=== PATIENT | female | born 1985 | race Caucasian/White ===

== ENCOUNTER 2019-08-31 19:46 | Inpatient (IN) | payer MEDICAID, SELFPAY ==
[~2019-08-31 19:46] MED LIST: Iopamidol-370 76% 500 ML 1 ML ONE
[2019-08-31 21:08] LABS: Lactic Acid 2.1 mmol/L (0.5-2.2)
[2019-08-31] MEDS ORDERED: Ondansetron PF 4 MG/2 ML Vial ONE (21:49)
[2019-08-31] MEDS ORDERED: Morphine 4 MG/ML VIAL ONE (21:49)
[2019-08-31] MEDS ORDERED: Ampicillin/Sulbactam 3 GM in Sodium Chloride 0.9% 100 ML IVPB SCH (23:45)
[2019-09-01] MEDS ORDERED: Ondansetron PF 4 MG/2 ML Vial IVP PRN (00:38)
[2019-09-01] MEDS ORDERED: Ondansetron ODT 4 MG TAB SL PRN (00:38)
[2019-09-01] MEDS: Sodium Chloride 0.9% 1,000 ML IV SCH ×3 (01:00→18:17)
--- NOTE | 2019-09-01 01:52 | PDOC.HHP ---
Hospitalist HPI - History of Present Illness Abdominal pain, sore throat History of Present Illness: Patient is a 34 year old female with PMH HTN who presents to ED from [facility] with CC of flu like symptoms, abdominal pain, sore throat x 1 day. Patient reports symptoms started today and worsened rapidly, she complains most about an abdominal pain with radiation to the flank as well as sore throat. She was sent to ED by physician for concern of sepsis and was transferred here from [place]. She has had a kidney stone but this pain in abd is different. No nausea , vomiting or diarrhea, no bleeding per mouth or anus. She smokes 1/2 ppd. She denies shortness of breath or difficulty managing secretions. No respiratory distress. She has severe PCN allergy with "swelling." In Ed, patient recieved vancpomycin, flagyl, cefepime, steroids. WBC 24. VS tachycardic. CT neck performed and read pending. Hospitalist ROS - Review of Systems Constitutional: reports: fever, chills, sweats Eyes: denies: pain, vision change, conjunctivae inflammation, eyelid inflammation, redness, other ENT: reports: ear pain, mouth pain, mouth swelling, throat pain, throat swelling Respiratory: reports: cough. denies: shortness of breath, pleuritic pain Cardiovascular: denies: chest pain, palpitations Gastrointestinal: reports: abdominal pain (radiates to flank). denies: nausea, vomiting Genitourinary: denies: dysuria, frequency Musculoskeletal: reports: neck pain Neurological: denies: weakness, numbness All other systems reviewed; all pertinent +/- noted in HPI/Subj Hospitalist History - Past Medical History Cardiac: reports: HTN - Past Surgical History Past Surgical History: reports: Cholecystectomy, - Family History Family History: reports: cancer, cardiac disorder - Social History Smoking Status: Current every day smoker Alcohol: reports: None Drugs: reports: none - Exam General Appearance: NAD, awake alert Eye: PERRL, anicteric sclera ENT: normocephalic atraumatic ENT - other findings: erythema and swelling of tonsils and posterior throat Neck: supple, symmetric, no JVD, no thyromegaly, no lymphadenopathy, no carotid bruit Heart: no murmur, no gallops, no rubs, normal peripheral pulses Heart - other findings: tachycardic, regular Respiratory: CTAB, no wheezes, no rales, no ronchi, normal chest expansion, no tachypnea, normal percussion Gastrointestinal: soft, non-tender, non-distended, normal bowel sounds, no palpable masses, no hepatomegaly, no splenomegaly, no bruit Extremities: no cyanosis, no clubbing, no edema Skin: normal turgor, no lesions, no rashes Neurological: cranial nerve grossly intact, normal sensation to touch, no weakness, no focal deficits, no new deficit Musculoskeletal: normal tone, normal strength, no muscle wasting Psychiatric: normal affect, normal behavior, A&O x 3 Hospitalist Results - Labs Lab results: Lactic Acid 2.1 mmol/L (0.5-2.2) 08/31/19 20:39 Additional comment: outside labs reviewed Hospitalist H&P A/P - Plan Plan: Patient is a 34 year old female with PMH HTN who presents to ED from [facility] with CC of flu like symptoms, abdominal pain, sore throat x 1 day. # sore throat, tonsillar/pharyngeal edema - concerning for strep throat vs pharyngeal abscess, managing secretions, no SOB or distress - start clindamycin/levaquin (PCN allergy) - pain medication PRN - consult ENT - NPO - follow up culture results (strep screen/throat culture) and final CT neck read # abdominal pain - less concerning than throat, CT abdomen at outside hospita # HTN - PRN meds ordered # GI, DVT ppx to start kevon in case surgery today, follow up final CT neck/ENT
[2019-09-01] MEDS ORDERED: hydrALAZINE 20 MG/ML VIAL SLOW IVP PRN (02:40)
[2019-09-01] MEDS ORDERED: Morphine 2 MG/ML SYRINGE SLOW IVP PRN (02:40)
[2019-09-01] MEDS ORDERED: cloNIDine 0.1 MG TAB PO PRN (02:40)
[2019-09-01] MEDS ORDERED: Bisacodyl 5 MG TAB PO PRN (02:41)
[2019-09-01] MEDS ORDERED: Acetaminophen 325 MG TAB PO PRN (02:41)
[2019-09-01] MEDS ORDERED: Acetaminophen 650 MG Suppository PR PRN (03:59)
[2019-09-01] MEDS ORDERED: Acetaminophen 650 MG/20.3 ML UDCUP PO PRN (04:02)
[2019-09-01] MEDS: Morphine 4 MG/ML VIAL SLOW IVP PRN ×4 (04:07→20:05)
[2019-09-01] MEDS: Ondansetron PF 4 MG/2 ML Vial IVP PRN ×3 (04:19→19:10)
[2019-09-01] MEDS: Clindamycin/D5W 600 MG in Premix Bag 1 BAG IVPB SCH ×3 (05:39→19:56)
[2019-09-01 06:04] LABS: Anion Gap 13 mmol/L (10-20); BUN (Urea Nitrogen) 6 mg/dL (7.0-18.7); Calc. Creatinine Clearance 202 mL/min (70-130); Calcium 7.9 mg/dL (7.8-10.44); Carbon Dioxide 24 mmol/L (22-29); Chloride 103 mmol/L (98-107); Estimated GFR-MDRD Greater than 90; Glucose 137 mg/dL (70-105); Potassium 3.5 mmol/L (3.5-5.1); Sodium 136 mmol/L (136-145)
[2019-09-01 06:08] LABS: Band 1 % (5-11); Eosinophils 1 % (0-10); Hemoglobin 12.7 g/dL (12.0-16.0); Lymphocytes 9 % (21-51); MDiff Complete? YES; Mean Corpuscular HGB CONC 31.8 g/dL (32.0-36.0); Mean Corpuscular Hemoglobin 26.8 pg (27.0-31.0); Mean Corpuscular Volume 84.2 fL (78.0-98.0); Mean Platelet Volume 7.5 fL (7.4-10.4); Monocytes 5 % (0-10); Neutrophil 83 % (42-75); Platelet Count 254 thou/uL (130-400); Platelet Morphology Comment Appears Adequate; RBC Distribution Width 13.3 % (11.5-14.5); Red Blood Cell (RBC) Count 4.73 mill/uL (4.20-5.40); White Blood Cell (WBC) Count 22.1 thou/uL (4.8-10.8)
[2019-09-01] MEDS: Vancomycin 1.5 GRAM/300 ML BAG 1.5 GM in Premix Bag 1 BAG IVPB SCH ×3 (06:28→22:17)
[2019-09-01] MEDS: Nicotine 14 MG PATCH TD SCH (06:38)
--- NOTE | 2019-09-01 08:55 | CT ---
PRELIMINARY REPORT/[facility]/EMERGENCY AFTER HOURS PROCEDURE: EXAM: CT Neck with Intravenous Contrast. CLINICAL HISTORY: ER 13.. Sore throat, neck pain. Concern of possible abscess TECHNIQUE: Axial computed tomography images of the neck with intravenous contrast. Sagittal and coron al reformations performed. CONTRAST: With; ISOVUE 370, 90ML COMPARISON: None provided. FINDINGS: PHARYNX: Tonsillar hypertrophy with midline contacts. The nasopharynx, oropharyx, and hypopharynx ar e otherwise unremarkable. No pharyngeal mucosal based mass lesions. LARYNX: The larynx is unremarkable. Normal epiglottis. RETROPHARYNGEAL SPACE: No retropharyngeal soft tissue swelling or gas. SALIVARY GLANDS: The parotid, submandibular, and sublingual glands are unremarkable. LYMPH NODES: Diffuse prominent cervical lymph nodes measuring up to 13 mm in short axis. THYROID: The thyroid gland is unremarkable. No nodule. BONES: No acute osseous abnormality. IMPRESSION: 1. No evidence of abscess. 2. Bilateral tonsillar hypertrophy. Correlate for tonsillitis. 3. Prominent cervical lymph nodes which are not pathologic by size criteria though abnormal in numbe r and likely reactive. Clinical follow-up is recommended to exclude the possibility of malignancy. ELECTRONICALLY SIGNED BY: Noé Jon M.D. Sep 01, 2019 12:36:27 AM CARDIAC NURSE SPECIALIST This report is intended for review by the ordering physician only, in accordance of law. If you recei ve this report in error, please call [facility] at [phone]. FINAL REPORT EMERGENCY AFTER HOURS CT NECK WITH CONTRAST: FINDINGS/IMPRESSION: I agree with the findings and impression given in the preliminary report per [facility] physici an. There is tonsillar hypertrophy without evidence of peritonsillar abscess. Prominent reactive bila teral cervical lymph nodes are seen.
[2019-09-01] MEDS: Polyethylene Glycol 3350 17 GM Packet PO SCH (09:12)
[2019-09-01] MEDS ORDERED: Aspirin/APAP/Caffeine Tab (Excedrin Migraine) PO PRN (09:31)
[2019-09-01] MEDS: HYDROcodone/Acetaminophen 5/325 mg Tablet PO PRN ×3 (14:39→23:01)
[2019-09-01 21:23] LABS: Vancomycin, Trough 13.4 ug/mL
[2019-09-02] MEDS: Ondansetron PF 4 MG/2 ML Vial IVP PRN ×3 (03:01→18:57)
[2019-09-02] MEDS: Morphine 4 MG/ML VIAL SLOW IVP PRN ×4 (03:34→18:57)
[2019-09-02] MEDS: Clindamycin/D5W 600 MG in Premix Bag 1 BAG IVPB SCH ×2 (04:42→12:36)
[2019-09-02] MEDS: Nicotine 14 MG PATCH TD SCH (06:05)
[2019-09-02] MEDS: HYDROcodone/Acetaminophen 5/325 mg Tablet PO PRN ×3 (06:05→21:38)
[2019-09-02] MEDS: Promethazine HCl 12.5 MG in Sodium Chloride 0.9% 50 ML IVPB PRN (06:44)
[2019-09-02] MEDS: Vancomycin 1.5 GRAM/300 ML BAG 1.5 GM in Premix Bag 1 BAG IVPB SCH ×2 (06:44→15:13)
[2019-09-02] MEDS: Enoxaparin Sodium 40 MG/0.4 ML SYRINGE SC SCH (08:55)
[2019-09-02] MEDS: Polyethylene Glycol 3350 17 GM Packet PO SCH (08:56)
[2019-09-02 09:48] LABS: #Basophils 0.1 thou/uL (0.0-0.2); #Eosinphils 0.2 thou/uL (0.0-0.7); #Lymphocytes 1.5 thou/uL (1.20-3.40); #Monocytes 0.8 thou/uL (0.11-0.59); #Neutrophils 13.7 thou/uL (1.40-6.50); %Basophils 0.3 % (0.0-1.0); %Eosinophils 1.1 % (0.0-10.0); %Lymphocytes 9.4 % (21.0-51.0); %Neutrophils 84.3 % (42.0-75.0); Hemoglobin 12.1 g/dL (12.0-16.0); Mean Corpuscular HGB CONC 32.4 g/dL (32.0-36.0); Mean Corpuscular Hemoglobin 27.4 pg (27.0-31.0); Mean Corpuscular Volume 84.6 fL (78.0-98.0); Mean Platelet Volume 7.6 fL (7.4-10.4); Platelet Count 245 thou/uL (130-400); RBC Distribution Width 13.2 % (11.5-14.5); White Blood Cell (WBC) Count 16.3 thou/uL (4.8-10.8)
--- NOTE | 2019-09-02 11:25 | CON ---
DATE OF CONSULTATION: 09/01/2019 The patient was seen in consultation by Elizabeth for evaluation of retropharyngeal abscess. BRIEF HISTORY: This is a 34-year-old female, who had a 36-hour history of sore throat. She reports it is the worst sore throat she has ever had and does not affect her airway. Actually, she had some painful swallowing. Otherwise, she is able to tolerate her secretions. Her airway is not compromised. Her voice does not bother or whatsoever. She is admitted for IV antibiotics. PAST MEDICAL HISTORY: None. PAST SURGICAL HISTORY: None. FAMILY HISTORY: Noncontributory. SOCIAL HISTORY: No tobacco. My alcohol. REVIEW OF SYSTEMS: GENERAL: Positive aches and chills and low-grade fevers for the past 24 hours and sore throat as above described. CARDIOVASCULAR: No history of chest pain, palpitations, or shortness of breath. PULMONARY: No coughing, wheeze, or history of asthma. HEME: No history of bleeding disorders. HEENT: No history of recurrent tonsillitis or tonsillar abscesses. PHYSICAL EXAMINATION: VITAL SIGNS: Stable, afebrile. GENERAL: She is resting comfortably in bed. Voice is clear. NECK: Subtle lymphadenopathy bilaterally at level II and III, 2 cm is the largest and nontender, non-fluctuant and are mobile. HEENT: Oral cavity and oropharynx, tonsils were 3 to 4+ cryptic with white pustules and cryptitis. Anterior pillars are red and injected, consistent with acute tonsillitis. There are no abnormal fluid collections. No abscess or areas of cellulitis. Tongue base is soft. Ears, TMs intact. Nose is well aerated. Nasal cavity congested. IMAGING DATA: CT scan of the neck was reviewed by me, which shows just reactive lymphadenopathy at level II and III bilaterally, also prominent tonsils consistent with tonsillitis. There is no evidence of retropharyngeal abscess. ASSESSMENT: 1. Acute tonsillitis. 2. Adenotonsillar hypertrophy. PLAN: She is going to continue on antibiotics. She will be discharged on oral antibiotics today and follow up with us as outpatient in 1 to 2 weeks. Job ID: [id number]
[2019-09-02] MEDS ORDERED: Chloraseptic Spray 180 ml Bottle PO PRN (14:48)
--- NOTE | 2019-09-02 15:10 | PRG ---
DATE OF SERVICE: 09/02/2019 SUBJECTIVE: The patient is seen examined at the bedside. She complains of a throat pain and difficulty swallowing. OBJECTIVE: VITAL SIGNS: Blood pressure is 151/88, pulse 92, respirations 18, temperature is 98.6, maximal temperature is 101.2 yesterday, O2 saturation is 94% on room air. HEENT: Head is atraumatic and normocephalic. Eyes are PERRLA. Sclerae are nonicteric. Throat examination shows exudates on tonsils bilaterally and hypertrophied tonsils with erythema and exudates. LUNGS: Clear. HEART: S1, S2 normal. No S3. No S4. No murmur. ABDOMEN: Soft, obese, nontender. EXTREMITIES: No clubbing, cyanosis, or edema. NEUROLOGICAL: She follows my commands. She moves all 4 extremities. There are no any motor or sensory deficits. Her voice is significantly affected by infection and she has difficulty to talk. She whispers. LABORATORY DATA: Labs showed white count of 16.3, hemoglobin 12.1, hematocrit 37.2, platelet count is 245,000. Microbiology, strep A culture and screening negative. This was done on throat swab. IMPRESSION: 1. Acute tonsillitis. 2. Hypertrophied palatine tonsils bilaterally. 3. Morbid obesity with body mass index of 41.2. PLAN: I am going to switch her to cephalosporin. I will get Chloraseptic. She started using some salty water to gargle her throat several times a day and she is quite shaky on her feet. Since she lives alone, I am going to postpone the discharge until she is more steady on her feet and she can go home safely later, possibly tomorrow. Job ID: [id number]
[2019-09-02] MEDS ORDERED: cefTRIAXone\\ROCEPHIN 1 GM in Sodium Chloride 0.9% 100 ML IVPB SCH (18:00)
[2019-09-03] MEDS: Morphine 4 MG/ML VIAL SLOW IVP PRN ×2 (02:23→08:51)
[2019-09-03] MEDS: Ondansetron PF 4 MG/2 ML Vial IVP PRN ×2 (02:23→08:51)
[2019-09-03] MEDS: HYDROcodone/Acetaminophen 5/325 mg Tablet PO PRN ×3 (04:48→15:27)
[2019-09-03] MEDS: Nicotine 14 MG PATCH TD SCH (05:29)
[2019-09-03 05:43] LABS: #Basophils 0.1 thou/uL (0.0-0.2); #Eosinphils 0.3 thou/uL (0.0-0.7); #Lymphocytes 2.4 thou/uL (1.20-3.40); #Monocytes 0.5 thou/uL (0.11-0.59); #Neutrophils 6.1 thou/uL (1.40-6.50); %Basophils 1.3 % (0.0-1.0); %Eosinophils 3.3 % (0.0-10.0); %Lymphocytes 25.3 % (21.0-51.0); %Monocytes 5.8 % (0.0-10.0); %Neutrophils 64.4 % (42.0-75.0); Hemoglobin 12.4 g/dL (12.0-16.0); Mean Corpuscular HGB CONC 32.5 g/dL (32.0-36.0); Mean Corpuscular Hemoglobin 27.9 pg (27.0-31.0); Mean Corpuscular Volume 85.9 fL (78.0-98.0); Mean Platelet Volume 7.4 fL (7.4-10.4); Platelet Count 282 thou/uL (130-400); RBC Distribution Width 13.1 % (11.5-14.5); Red Blood Cell (RBC) Count 4.46 mill/uL (4.20-5.40); White Blood Cell (WBC) Count 9.5 thou/uL (4.8-10.8)
[2019-09-03] MEDS: Promethazine HCl 12.5 MG in Sodium Chloride 0.9% 50 ML IVPB PRN (06:27)
[2019-09-03] MEDS: Polyethylene Glycol 3350 17 GM Packet PO SCH (08:47)
[2019-09-03] MEDS: Enoxaparin Sodium 40 MG/0.4 ML SYRINGE SC SCH (08:47)
[2019-09-03 12:42] VITALS: BP 137/92; TEMP 98.2
--- NOTE | 2019-09-03 12:56 | DIS ---
DATE OF ADMISSION: 09/01/2019 DATE OF DISCHARGE: 09/03/2019 FINAL DIAGNOSES: At the time of discharge; 1. Acute tonsillitis. 2. Hypertrophied palatine tonsils bilaterally. 3. Morbid obesity with body mass index of 41.2. 4. Hypertension. CONSULTANTS: Dr. Dillon, ENT Service. HOSPITAL COURSE: The patient is a 34-year-old female, who presented to the ER from [facility] with complaints of flu-like symptoms, abdominal pain, sore throat x1 day. Apparently, her symptoms developed rapidly. The abdominal pain was radiated to the flank as well as the patient was seen by ED. There was concern of sepsis. She was transferred to our emergency room from [place]. There was no nausea, vomiting, or diarrhea. No bleeding. She denied any shortness of breath or difficulty managing secretions. She was not in respiratory distress. She had some penicillin allergy. She presented with swelling. In the emergency room, the patient received vancomycin, Flagyl, cefepime, and steroids. Her WBCs were up to 24,000. CT of the neck was performed and it did not show any abscess, just hypertrophied tonsils. The patient was admitted to the hospital, placed on clindamycin, levofloxacin, and vancomycin. The patient was seen by Dr. Dillon for ENT evaluation. He recommended to continue IV antibiotics and transferred to oral and discharged home, follow up with him in 1 week. The patient's regimen subsequently was changed to Rocephin. She did not have any side effects from Rocephin. She tolerated it well. Her fever went away. She was afebrile yesterday. Her temperature today is 98.2, blood pressure was running in the 140s to 150s. She did not start any blood pressure medications since she had steroids in the emergency room and this could be related to that treatment, but she is advised to follow up with primary doctor in a week and discussed option for blood pressure medications. We advised her to lose weight since her BMI is 41.2 and she weighs 255 pounds. She is switched to Ceftin 500 mg twice a day for 7 days. She will have 3 days off before she returns to work, but She is going to follow up with her primary care physician in a week and with Dr. Dillon, ENT approximately in 1 week. She will continue her Chloraseptic p.r.n. and she will gargle her throat with salty water p.r.n. as needed. She is discharged home in good condition. Job ID: [id number]
== END 2019-09-03 15:54 | disposition home or self-care (01) | DRG 872 ==
LOC: ERS 19:46 → T4-B 09-01 00:29 → OBSVTOIN 09-01 00:29
PROVIDERS: ADMIT Internal Medicine; ATTEND Internal Medicine
DX: A41.9 Sepsis, unspecified organism (principal); Z68.41 Body mass index [BMI] 40.0-44.9, adult; J03.90 Acute tonsillitis, unspecified; I10 Essential (primary) hypertension; E66.01 Morbid (severe) obesity due to excess calories; R00.0 Tachycardia, unspecified; R10.9 Unspecified abdominal pain; F17.200 Nicotine dependence, unspecified, uncomplicated; Z82.49 Family history of ischemic heart disease and other diseases of the circulatory system; Z88.0 Allergy status to penicillin; Z90.49 Acquired absence of other specified parts of digestive tract; Z80.9 Family history of malignant neoplasm, unspecified
CPT/HCPCS: 36415; 36416; 70491; 80048; 80202; 83605; 85025; 87070; 87081; 87430; 96374; 96375; J0696; J1650; J1956; J2270; J2405; J2550; J3490; Q9967